=== PATIENT | female | born 1985 | race Two or more races ===

== ENCOUNTER 2016-09-20 07:19 | Emergency (ER) | payer MEDICAID ==
[~2016-09-20] VITALS: Ht 160 cm; Wt 106.6 kg
[2016-09-20 07:50] VITALS: BP 122/87
== END 2016-09-20 07:56 | disposition home or self-care (01) ==
LOC: ER 07:19
DX: J02.9 Acute pharyngitis, unspecified (principal); J03.90 Acute tonsillitis, unspecified